=== PATIENT | female | born 1990 | race Caucasian/White ===

== ENCOUNTER 2018-12-11 11:13 | Emergency (ER) | payer OTHER ==
[~2018-12-11] VITALS: Ht 160 cm; Wt 67.1 kg
[2018-12-11 12:11] VITALS: BP 120/57
[2018-12-11] MEDS ORDERED: ACETAMINOPHEN 500 MG TABLET PO ONE (12:30)
--- NOTE | 2018-12-11 12:31 | RAD ---
Three-view left ankle study Clinical indications: Fell today. Swelling and pain. FINDINGS: Lateral soft tissue swelling is seen. No acute fracture or dislocation or lytic process is evident. The mortise ankle joint is intact. IMPRESSION: No acute fracture. Electronically signed by: Elliot Finley MD (12/11/2018 12:28 PM) [facility]
--- NOTE | 2018-12-11 13:20 | PHYS DOC ---
Past Medical History Past Medical History: No Pertinent History Past Surgical History: No Surgical History Alcohol Use: Occasionally Drug Use: None Adult General Chief Complaint Chief Complaint: ANKLE PROBLEM HPI HPI Patient is a 28 year old female who presents to the emergency department with complaints of left ankle pain and swelling. Patient states she was working at the [employer] when she tripped over some items or on the floor and rolled her left ankle inward. She currently rates the pain a 9 out of 10 on the pain scale, there are no alleviating factors, the pain increases with weightbearing and movement. Patient states she has been unable to walk on her left leg since the injury. She denies taking any medications prior to arrival for relief of pain. Patient declines anything stronger than one 500 mg tablet of Tylenol for pain in the emergency department. ROS Patient denies any numbness, or tingling affected extremity. She denies any head, neck, or back pain after the fall. She denies any loss of consciousness, nausea, or vomiting since the fall. All other ROS is neg unless otherwise noted in HPI. Review of Systems Review of Systems See Above Current Medications Current Medications Current Medications Medications (Trade) Dose Ordered Sig/Gonzalo Start Time Stop Time Status Last Admin Dose Admin Acetaminophen (Tylenol) 500 mg 1X ONCE 12/11/18 12:30 12/11/18 12:32 DC 12/11/18 12:47 500 MG Allergies Allergies Allergies Coded Allergies Type Severity Reaction Last Updated Verified No Known Drug Allergies 12/11/18 No Physical Exam Physical Exam See Above Constitutional: Well developed, well nourished, no acute distress, non-toxic appearance. [] HENT: Normocephalic, atraumatic, bilateral external ears normal, oropharynx mo ist, no oral exudates, nose normal. [] Eyes: PERRLA, EOMI, conjunctiva normal, no discharge. [] Neck: Normal range of motion, no stridor. [] Cardiovascular:Heart rate regular rhythm Lungs & Thorax: Respirations even and unlabored, no retractions, no respiratory distress Skin: Warm, dry, no erythema, no rash; bruising noted the lateral left ankle [] Extremities: Lateral left ankle tenderness to palpation, no crepitus, 2+ swelling to left ankle with bruising noted, no cyanosis, no clubbing, left ankle range of motion limited due to pain. Neurologic: Alert and oriented X 3, no focal deficits noted. [] Psychologic: Affect normal, judgement normal, mood normal. [] Current Patient Data Vital Signs Vital Signs Date Time Temp Pulse Resp B/P (MAP) Pulse Ox O2 Delivery O2 Flow Rate FiO2 12/11/18 12:11 97.8 90 16 120/57 (78) 98 Room Air 97.8 EKG EKG [] Radiology/Procedures Radiology/Procedures PROCEDURE: ANKLE LEFT 3V Three-view left ankle study Clinical indications: Fell today. Swelling and pain. FINDINGS: Lateral soft tissue swelling is seen. No acute fracture or dislocation or lytic process is evident. The mortise ankle joint is intact. IMPRESSION: No acute fracture. [] Course & Med Decision Making Course & Med Decision Making Pertinent Labs and Imaging studies reviewed. (See chart for details) dx: Left ankle pain, left ankle sprain []X-ray of left ankle was negative for any acute fracture or dislocation. The patient was given one Tylenol 500 mg tablet in the emergency department, she refused any other pain medication. Patient was placed in an air splint and crutches, she was advised to follow-up with Dr. Velasquez if symptoms persist, return to the ER symptoms worsen. She may take tylenol or ibuprofen As needed for pain. Patient verbalized an understanding of home care, medications, follow-up, and return to ED instructions and was in agreement with the plan of care. Dragon Disclaimer Dragon Disclaimer This electronic medical record was generated, in whole or in part, using a voice recognition dictation system. Departure Departure Impression: Primary Impression: Left lateral ankle pain Additional Impression: Left ankle sprain Disposition: 01 HOME, SELF-CARE Condition: STABLE Referrals: NO PCP (PCP) ELISHA VELASQUEZ MD Patient Instructions: Ankle Pain, Ankle Sprain, [id number] Additional Instructions: You may take Tylenol or ibuprofen as needed for pain. Recommend application of ice, elevation, and rest of affected extremity. Wear the splint that was placed and crutches as needed until you are able to bear weight. If symptoms are not improving by next week, follow-up with Dr. Velasquez. Return to the ER if your symptoms worsen. Problem Qualifiers Additional Impression: Left ankle sprain Encounter type: initial encounter Involved ligament of ankle: unspecified ligament Qualified Codes: S93.402A - Sprain of unspecified ligament of left ankle, initial encounter JUAN LUIS CHAMBERS BRASS SORTER Dec 11, 2018 13:20
== END 2018-12-11 13:41 | disposition home or self-care (01) ==
LOC: ER 11:13
DX: S93.402A Sprain of unspecified ligament of left ankle, initial encounter (principal); W01.0XXA Fall on same level from slipping, tripping and stumbling without subsequent striking against object, initial encounter; Y93.89 Activity, other specified; Y92.148 Other place in prison as the place of occurrence of the external cause; Y99.0 Civilian activity done for income or pay
CPT/HCPCS: 73610; 99284; L4350